=== PATIENT | female | born 1995 | race Caucasian/White ===

== ENCOUNTER 2021-02-03 08:19 | Emergency (ER) | payer OTHER, SELFPAY ==
[2021-02-03 08:35] VITALS: BP 134/85; PULSE 83; RESP 18; TEMP 37.1; O2SAT 99
--- NOTE | 2021-02-03 08:35 | ED.URI ---
HPI - URI/Sore Throat General Chief Complaint: Unspecified Stated Complaint: Wants Covid Test Time Seen by Provider: 02/03/21 08:34 Source: patient Mode of arrival: ambulatory Limitations: no limitations History of Present Illness HPI Narrative: Patient is a 25-year-old female who presents for evaluation of rhinorrhea, congestion, mild productive cough. Patient states that she was exposed to a person who tested positive for Covid, and was exposed to them on January 30. Patient currently denies fever, chills, nausea, vomiting, diarrhea. She does report loss of sense of taste, no loss of sense of smell. She denies any chest pain or pleuritic pain. No shortness of breath. She reports mild dry cough and congestion. Her two children have also been sick with rash, similar symptoms. Patient denies any fever. States she is vaccinated. Related Data Home Medications Medication Instructions Recorded Confirmed No Home Medications 02/03/21 02/03/21 Allergies Allergy/AdvReac Type Severity Reaction Status Date / Time ceftriaxone Allergy Unknown RASH Verified 02/03/21 08:38 Review of Systems Review of Systems: CONSTITUTIONAL: Denies fever, chills, or sweats. EYES: Denies visual changes, redness, or discharge. ENT: Reports rhinorrhea, congestion, denies sore throat or otalgia CARDIOVASCULAR: Denies chest pain, palpitations, or edema. RESPIRATORY: Denies cough or dyspnea. GASTROINTESTINAL: Denies abdominal pain, nausea, vomiting, or diarrhea. GENITOURINARY: Denies dysuria or hematuria. SKIN: Denies rash or itching. MUSCULOSKELETAL: Denies back pain, joint pain, or myalgia. NEUROLOGIC: Denies headache, numbness, or weakness. [facility] Social History Social History (Updated 02/03/21 @ 09:32 by Marie Holland MD) Smoking status: Former smoker Tobacco type: cigarettes Alcohol intake: never Substance use: never Living arrangements: with family Gender identity (if verbalized by the patient): Female Exam Narrative: GENERAL: Awake, alert, conversant HEAD: Normocephalic, atraumatic. EYES: PERRLA and EOMI. ENT: Nares clear, mild congestion, no significant rhinorrhea. Mucous membranes moist. NECK: Supple. CHEST: No respiratory distress, breathing even and non labored HEART: Regular rate, sinus rhythm ABDOMEN:Non distended, non tender EXTREMITIES: Normal range of motion. No edema. SKIN: Warm, dry, no rash. NEURO:No focal deficits. Alert and oriented x3 Course Vital Signs Vital signs: Vital Signs Temperature 37.1 C 02/03/21 08:35 Pulse Rate 83 02/03/21 08:35 Respiratory Rate 18 02/03/21 08:35 Blood Pressure 134/85 02/03/21 08:35 Pulse Oximetry 99 02/03/21 08:35 Temperature 37.1 C 02/03/21 08:35 Pulse Rate 83 02/03/21 08:35 Respiratory Rate 18 02/03/21 08:35 Blood Pressure 134/85 02/03/21 08:35 Pulse Oximetry 99 02/03/21 08:35 MDM - URI/Sore Throat MDM Narrative Medical decision making narrative: Patient presenting for evaluation of congestion, mild cough. Patient is well-appearing at the time of assessment with normal vital signs. She denies any chest pain, shortness of breath, high fever, myalgias, vomiting. Patient states that she would like to be tested for Covid and would like her children tested for Covid. The lodging manager is evaluating her children. Patient is well-appearing, no focal findings on exam. Patient is in no respiratory distress. There is no wheezing or crackles appreciated on exam. Low suspicion for bacterial pneumonia given mild nature of symptoms. This may be a nonspecific viral illness versus Covid illness. We will swab for Covid. Patient was then discharged home with family in stable condition given close return precautions, advised to quarantine until results of Covid swab are available. Differential Diagnosis Differential diagnosis: Likely upper respiratory infection, sinusitis, viral infection and bronchitis Lab Data Labs: Lab Results 12
[2021-02-03 17:58] LABS: SARS-CoV-2 RNA PCR Positive
== END 2021-02-03 09:41 | disposition home or self-care (01) ==
PROVIDERS: Emergency Provider Emergency Medicine
DX: U07.1 COVID-19 (principal); J06.9 Acute upper respiratory infection, unspecified; Z87.891 Personal history of nicotine dependence
CPT/HCPCS: 99283; C9803; U0003; U0005

== ENCOUNTER 2021-11-04 10:25 | Observation (INO) | payer OTHER, SELFPAY ==
[2021-11-04 11:01] VITALS: BP 111/64; PULSE 76
--- NOTE | 2021-11-04 11:37 | OBADM ---
This patient, Keisha Dove, admitted to the OB room Labor/Delivery/Recovery 120 for observation. Patient/family oriented to hospital policies and general routines including ID bracelet, bed and alarms, visiting hours, pain management, procedures, bathroom and other care routines, personal items, smoking policy, room service/diet, and visiting hours. Patient/Family are encouraged to report perceived risks to care and to ask questions if they do not understand what they are told or what they should do.
[2021-11-04 11:56] LABS: Appearance Urine Clear (Clear); Bilirubin Urine Negative (Negative); Color Urine Yellow (Yellow); Glucose Urine UA Negative (Negative); Ketones Urine Negative (Negative); Leukocyte Esterase Ur Negative LEU/UL (Negative); Nitrate Urine Negative (Negative); Protein Urine Negative (Negative); Urobilinogen Urine 0.2 mg/dL (<2.0)
[2021-11-04 12:01] LABS: Mucus Urine Rare /lpf; RBC Urine 0-2 /hpf (0-2); Squamous Epithelial Cell Urine Many /hpf (Few); WBC Urine 0-3 /hpf
[2021-11-04] MEDS: HYDROcodone/acetaminophen (*CRX) 10-325 MG TABLET 1 TAB PO (12:07)
[2021-11-04 12:08] LABS: Add Urine Microscopic? YES; Blood Urine Trace-Intact (Negative)
--- NOTE | 2021-11-05 14:54 | PM.OBTRLD ---
OB - Triage/Final Diagnosis Visit Information Date of evaluation: 11/05/21 Reason for evaluation: threatened labor Comments/Additional reasons for admission: I have assessed the risk for this patient, Keisha Dove, and determined that she would benefit from observation care. Evaluation Laboratory results: Laboratory Tests 11/04/21 10:56 Urine Color Yellow Urine Appearance Clear Urine pH 7.0 Ur Specific [place] 1.020 Urine Protein Negative Urine Glucose (UA) Negative Urine Ketones Negative Ur Blood (Man) Trace-intact Urine Nitrate Negative Urine Bilirubin Negative Urine Urobilinogen 0.2 Leukocyte Esterase Rfl Negative Urine RBC 0-2 Urine WBC 0-3 Ur Squamous Epith Cells Many H Urine Mucus Rare
--- NOTE | 2021-11-09 07:39 | PM.OBTRLD ---
OB - Triage/Final Diagnosis Visit Information Reason for evaluation: threatened labor Comments/Additional reasons for admission: I have assessed the risk for this patient, Keisha Dove, and determined that she would benefit from observation care. Evaluation Laboratory results: Laboratory Tests 11/04/21 10:56 Urine Color Yellow Urine Appearance Clear Urine pH 7.0 Ur Specific [place] 1.020 Urine Protein Negative Urine Glucose (UA) Negative Urine Ketones Negative Ur Blood (Man) Trace-intact Urine Nitrate Negative Urine Bilirubin Negative Urine Urobilinogen 0.2 Leukocyte Esterase Rfl Negative Urine RBC 0-2 Urine WBC 0-3 Ur Squamous Epith Cells Many H Urine Mucus Rare
== END 2021-11-04 12:10 | disposition home or self-care (01) ==
PROVIDERS: Admitting Provider Obstetrics & Gynecology; Visit Provider Obstetrics & Gynecology
DX: O47.03 False labor before 37 completed weeks of gestation, third trimester (principal); Z3A.28 28 weeks gestation of pregnancy
CPT/HCPCS: 81001; A9270; G0378; G0379

== ENCOUNTER 2021-11-11 07:11 | Outpatient (RCR) | payer OTHER, SELFPAY ==
[2021-11-11] MEDS: RHO(D) IMMUNE GLOBULIN 300 MCG/2 ML SYRINGE IM (13:56)
== END 2021-11-11 07:30 | disposition home or self-care (01) ==
LOC: ANHLAB 07:11
PROVIDERS: Visit Provider Obstetrics & Gynecology
DX: Z29.13 Encounter for prophylactic Rho(D) immune globulin (principal); O36.0190 Maternal care for anti-D [Rh] antibodies, unspecified trimester, not applicable or unspecified; Z3A.00 Weeks of gestation of pregnancy not specified
CPT/HCPCS: 36415; 85461; 90384; 96372; J2790

== ENCOUNTER 2022-01-01 16:07 | Observation (INO) | payer OTHER, SELFPAY ==
[2022-01-01] VITALS (8 sets, daily range): BP systolic 100–105; BP diastolic 51–61; PULSE 71–84; O2SAT 99–100; BMI 36.3
--- NOTE | 2022-01-05 07:44 | PM.OBTRLD ---
OB - Triage/Final Diagnosis Visit Information Reason for evaluation: threatened labor Comments/Additional reasons for admission: I have assessed the risk for this patient, Keisha oDve, and determined that she would benefit from observation care.
== END 2022-01-01 17:15 | disposition home or self-care (01) ==
PROVIDERS: Admitting Provider Obstetrics & Gynecology; Visit Provider Obstetrics & Gynecology
DX: O47.1 False labor at or after 37 completed weeks of gestation (principal); Z3A.37 37 weeks gestation of pregnancy
CPT/HCPCS: G0378; G0379

== ENCOUNTER 2022-01-15 11:13 | Outpatient (CLI) | payer OTHER, SELFPAY ==
[2022-01-15 11:41] LABS: Hematocrit 31.9 % (37.0-47.0); Hemoglobin 10.4 g/dL (12.0-15.0); Mean Corpuscular HGB Conc 32.6 g/dl (32-36); Mean Corpuscular Hemoglobin 27.6 pg (26-34); Mean Corpuscular Volume 84.6 fl (80-100); Mean Platelet Volume 11.1 fl (7.4-10.4); Platelet Count Result 184 k/mm3 (150-375); Red Blood Count 3.77 M/mm3 (4.2-5.4); Red Cell Distribution Width 12.6 % (11.5-14.5)
[2022-01-17 07:13] LABS: Rapid Plasma Reagin Non-Reactive (NonReactive)
== END 2022-01-15 11:14 | disposition home or self-care (01) ==
LOC: ANHLAB 11:16
PROVIDERS: Visit Provider Obstetrics & Gynecology
DX: Z01.818 Encounter for other preprocedural examination (principal)
CPT/HCPCS: 36415; 85027; 86592; 86850; 86880; 86900; 86901; 86902

== ENCOUNTER 2022-01-17 09:37 | Inpatient (IN) | payer OTHER, SELFPAY ==
[2022-01-17] VITALS (54 sets, daily range): BP systolic 103–135; BP diastolic 49–100; PULSE 50–187; RESP 12–18; TEMP 36.2–37; O2SAT 84–100; BMI 36.3
--- NOTE | 2022-01-17 07:40 | PM.IMHP ---
H&P: HPI History of Present Illness Date/Time: 01/17/22 07:40 Chief Complaint: Repeat section Narrative: This is a 26 year female admitted for repeat has been complicated PMFSH Family History Family History Other Patient denies significant medical history Social History Social History Smoking status: Former smoker Tobacco type: cigarettes Alcohol intake: never Substance use: current Last use: daily Gender identity (if verbalized by the patient): Female Spiritual care concerns: No Meds Home Medications and Allergies Home Medications Medication Instructions Recorded Confirmed Type No Home Medications 02/03/21 01/01/22 History Allergies Allergy/AdvReac Type Severity Reaction Status Date / Time ceftriaxone Allergy Unknown RASH Verified 02/03/21 08:38 Exam Const: General: cooperative, healthy appearing, comfortable and well groomed Nutritional Appearance: average body habitus Orientation/consciousness: oriented to person, oriented to place and oriented to time HENMT: Head: normal to inspection Resp: Effort & Inspection: normal respiratory effort Cardio: Rate: regular rate Rhythm: regular rhythm Heart sounds: S1 normal heart sound present and S2 normal heart sound present GI: Inspection: normal to inspection (Gravid soft uterus) Assessment and Plan Assessment and plan (1) Term : Code(s): Z34.90 - Encounter for supervision of normal , unspecified, unspecified trimester Status: Acute (2) Previous section: Code(s): Z98.891 - History of uterine scar from previous surgery Status: Acute Plan Repeat low-transverse section
--- NOTE | 2022-01-17 07:43 | WPDHPUPDATE1 ---
History and Physical Update Update Date/Time: 01/17/22 07:43 History and Physical has been reviewed, including an updated exam of the patient. There are NO changes in the patient's condition. Risks, benefits, and alternatives have been discussed and questions answered. Patient agrees to proceed with procedure.
--- NOTE | 2022-01-17 09:37 | LDADM ---
This patient, Keisha Dove, was admitted to OB Post 116 on 01/17/22 at 09:37. Plans for labor, pain management and were discussed with patient. Patient/family oriented to hospital policies and general routines including ID bracelet, bed and alarms, visiting hours, pain management, procedures, bathroom and other care routines, personal items, smoking policy, room service/diet and guest tray routines, infant security routines, and visiting hours. Patient/Family are encouraged to report perceived risks to care and to ask questions if they do not understand what they are told or what they should do. See OBIX for further documentation.
[2022-01-17] MEDS: LACTATED RINGERS 1,000 ML 125 ML IV CONT ×2 (10:47→11:29)
--- NOTE | 2022-01-17 11:11 | P.PNAN_ITS ---
Anes - Initial Pre Proc Eval Procedure: Operation Date: 01/17/22 12:00 Proposed Procedures p Repeat Section with Tubal Ligation with Fallopian Rings - Sourav Roper MD Date/Time: 01/17/22 11:11 Surgeon: Sourav Roper MD Pre Op Diagnosis: Repeat with Vol Sterilization/preadmit Patient Data Age: 26 Gender: F Height: Weight: Allergies Allergy/AdvReac Type Severity Reaction Status Date / Time ceftriaxone Allergy Unknown RASH Verified 01/17/22 10:07 Home Medications Medication Instructions Recorded Confirmed Type No Home Medications 02/03/21 01/01/22 History hydrocodone 5 mg-acetaminophen 325 1 tablet PO Q4H PRN pain #30 tabs 01/17/22 Rx mg tablet hydrocodone 5 mg-acetaminophen 325 1 tablet PO Q4H PRN pain #30 tabs 01/17/22 Rx mg tablet Patient hx anesthesia problems: none Family hx anesthesia problems: none Results Review: All pre-operative results and documents have been reviewed as part of the pre- operative evaluation. [facility] Family History Family History Other Patient denies significant medical history Social History Social History Smoking status: Former smoker Tobacco type: cigarettes Second hand tobacco smoke exposure: No Alcohol intake: never Substance use: current Last use: daily Lack of Transportation: No Lack of Food: Never True Current Housing: I Have Housing Concerned About Future Housing: No Difficulty Paying Gas/Electric Bills: YES Difficulty Paying for Meds: No Currently Unemployed: No Education: High School Diploma/GED Difficulty w/ Childcare or Family Care: No Gender identity (if verbalized by the patient): Female Spiritual care concerns: No Anes - Eval Final PreProcedure Day of Procedure 01/17/22 11:11 Patient weight: overweight Heart: regular rate and rhythm Lungs: clear to auscultation and normal air movement Airway: Mallampati scale class II Neurological: alert and oriented Last oral intake: >/= 8 hours ASA classification: II Emergent: no Anesthetic plan: proceed Anesthesia type and monitoring: regional spinal Results Review: All pre-operative results and documents have been reviewed as part of the pre-operative evaluation. Informed Consent: The patient's anesthetic plan and its attendant risks and benefits were discussed with the patient/family/POA. Questions were solicited and answers provided to the satisfaction of the patient/family/POA.
--- NOTE | 2022-01-17 11:51 | WPDHPUPDATE1 ---
History and Physical Update Update Date/Time: 01/17/22 11:51 History and Physical has been reviewed, including an updated exam of the patient. There are NO changes in the patient's condition. Risks, benefits, and alternatives have been discussed and questions answered. Patient agrees to proceed with procedure. patient will undergo btl
[2022-01-17] MEDS: ceFAZolin 2 GM/D5W 50 ML 2 GM/50 ML BAG IVPB (12:08)
--- NOTE | 2022-01-17 12:58 | P.OP_ITS ---
Procedure Note - Detailed Date of Procedure 01/17/22 Pre-op Diagnosis Repeat with Vol Sterilization/preadmit Post-op Diagnosis Same Procedure Performed Repeat low transverse section and bilateral tubal ligation via Surgeon Sourav Roper MD Anesthesia Spinal Indications this is E 18 year 3 para 3 admitted for repeat section tubal ligation. Findings Female infant 7lb 5oz with Apgars of 8 5minutes respectively. Normal-appeari ng uterus ovaries and tubes Description of Procedure patient was prepped draped in the normal sterile fashion placed in the supine position. Under excellent spinal anesthetic the abdomen was entered through the previous Pfannenstiel incision progressive layers fascia. Fascia incised midline cure number pressure bilaterally. Underlying muscles sharply dissected. Parietal perineum awakened clamped and bike sharp dissection carried superiorly and inferiorly the dome of the bladder. Bladder blade placed bladder blade flap formed bladder blade returned. A low transverse incision made head delivered in the HUMBERTO position. Anterior posterior shoulder delivered spontaneously. Cord complex 2 and cut and passed off the table given Apgars of 8 [id number] cord blood was drawn placenta intact manually uterus delivered in abdomen wrapped in moist towel. After assuring no membranes remained in the uterus uterus was closed initially with a continuous running locking 0 Vicryl from lateral edge to lateral edge. This followed by 2nd imbricating running locking 0 Vicryl from lateral edge to lateral edge. Hemostasis was assured. Tu bal ligation was then undertaken midportion of the right fallopian tube was grasped a good knuckle of tube formed and a free tied with 0 chromic the distal and proximal portions were then free tied with 0 chromic in the portion between cut passed off the table and marked as portion of right fallopian tube. Hemostasis was assured in like fashion left fallopian tube was grasped in midportion a good knuckle of tube formed free tied with 0 chromic. The distal and proximal legs were then free tied with 0 chromic the portion between cut passed off the table labeled as portion of left fallopian tube. Hemostasis was assured. The uterine incision speculum 1 last time no be hemostatic and the uterus returned to the abdomen. The hysterotomy incision inspected 1 last time noted be hemostatic. Laps removed cord blood loss estimated. The fascia closed in continuous running 0 Vicryl from lateral edge to midline bilaterally. Irrigation subcutaneous layer and skin closed with 4 Monocryl and glue blood loss by QBL was 410cc. All sponge, needle, instrument counts were correct. Mom and baby fine time of dictation Estimated Blood Loss 410 Drains No Packing No Pathology Yes ( bilateral portions of tube) Complications No immediate complications Condition Stable Disposition PACU
--- NOTE | 2022-01-17 13:01 | PM.DS ---
DS: Admitting Diagnosis Discharge Date In Admitting Diagnosis term /desires permanent sterilization/ previous section DS: Discharge Diagnosis Discharge Diagnosis (1) Sterilization: Code(s): Z30.2 - Encounter for sterilization Status: Acute (2) Previous section: Code(s): Z98.891 - History of uterine scar from previous surgery Status: Acute (3) Term : Code(s): Z34.90 - Encounter for supervision of normal , unspecified, unspecified trimester Status: Acute DS: Summary Hospital Course Reason for hospitalization: patient was admitted for repeat section bilateral tubal ligation at term Hospital Course: the patient underwent repeat low-transverse section bilateral tubal ligation on 1421. Her hospital course unremarkable. She remained afebrile. She was up, voiding without difficulty, ambulating, eating regular diet, general cut complaints. Time Spent with Patient Time attestation: Total time spent providing and/or coordinating discharge services: Exam Const: General: cooperative, healthy appearing and comfortable Nutritional Appearance: obese Orientation/consciousness: oriented to person, oriented to place and oriented to time HENMT: Head: normal to inspection Resp: Effort & Inspection: normal respiratory effort Cardio: Rate: regular rate Rhythm: regular rhythm Heart sounds: S1 normal heart sound present and S2 normal heart sound present GI: Inspection: normal to inspection, incision ( Wound clean dry and intact) and scar Discharge Plan Discharge Attending physician on discharge: Sourav Husain Discharging Clinician: Sourav Husain Patient Disposition: Home, Self-Care Activity: may shower, no straining and pelvic rest Diet: heart healthy Wound Care Instructions: follow printed instructions Patient Instructions: Antibiotic Form Stand Alone Forms: General Discharge Information Follow-up/Referrals: Sourav Husain MD [Physician] - Discharge Medications: New hydrocodone-acetaminophen 5-325 mg tablet 1 tablet PO Q4H PRN (Reason: pain) Qty: 30 0RF hydrocodone-acetaminophen 5-325 mg tablet 1 tablet PO Q4H PRN (Reason: pain) Qty: 30 0RF No Action No Home Medications Date of admission: 01/17/22 09:37 Primary Care Provider: UNKNOWN,DOCTOR Admitting Provider: Sourav Husain Attending physician on admission: Sourav Husain Condition: Stable
[2022-01-17] MEDS: MORPHINE SULFATE INJ (*CRX) 10 MG/ML AMP 2 MG IV PUSH ×5 (13:23→15:06)
--- NOTE | 2022-01-17 13:53 | PC.NURSE ---
2 bags of 100 ml LR bolused in pre op per protocol. Scanned under order of 125 ml/hr.
--- NOTE | 2022-01-17 14:49 | PC.NURSE ---
Report given to RACHEAL Skinner on unit.
--- NOTE | 2022-01-17 15:22 | OBPPTRN ---
Patient transferred to post room #285 via stretcher. Support person present. Oriented to unit, room, information board, rooming in, admission packet and security measures. Patient verbalizes understanding.
[2022-01-17] MEDS: DEXTROSE 5%/0.45% SOD CHL 1,000 ML 125 ML IV CONT (15:43)
[2022-01-17] MEDS: KETOROLAC 30 MG/ML VIAL (*BKC) IV PUSH ×2 (15:45→20:03)
[2022-01-18] MEDS: HYDROcodone/acetaminophen (*CRX) 10-325 MG TABLET 1 TAB PO ×5 (00:10→19:41)
[2022-01-18 04:10] VITALS: BP 103/58; PULSE 70; RESP 16; TEMP 36.6; O2SAT 98
[2022-01-18] MEDS: ACETAMINOPHEN 325 MG TABLET 650 MG PO (04:15)
[2022-01-18 05:41] LABS: Basophils Percent Auto 0.2 % (0.2-1.2); Eosinophils Absolute Auto 0.1 K/mm3 (0-0.3); Eosinophils Percent Auto 0.7 % (0-4.4); Hematocrit 26.7 % (37.0-47.0); Hemoglobin 8.7 g/dL (12.0-15.0); Immature Granulocyte Absolute 0.04 K/mm3 (0.00-0.031); Immature Granulocyte Percent A 0.4 % (0-0.5); Lymphocytes Absolute Auto 1.62 K/mm3 (0.9-3.2); Lymphocytes Percent Auto 17.2 % (18.3-44.2); Mean Corpuscular HGB Conc 32.6 g/dl (32-36); Mean Corpuscular Hemoglobin 26.9 pg (26-34); Mean Corpuscular Volume 82.7 fl (80-100); Mean Platelet Volume 11.9 fl (7.4-10.4); Monocytes Percent Auto 10.8 % (2.6-8.5); Neutrophils Absolute Auto 6.7 K/mm3 (1.3-6.7); Neutrophils Percent Auto 70.7 % (45.5-73.1); Platelet Count Result 149 k/mm3 (150-375); Red Blood Count 3.23 M/mm3 (4.2-5.4); Red Cell Distribution Width 12.7 % (11.5-14.5); White Blood Count 9.4 K/mm3 (4.5-10.0)
[2022-01-18] MEDS: IBUPROFEN 600 MG TABLET PO ×3 (06:49→19:40)
[2022-01-18] MEDS: HYDROcodone/acetaminophen (*CRX) 5-325 MG TABLET 1 TAB PO (06:50)
--- NOTE | 2022-01-18 07:48 | PM.OBPNVD ---
OB - PN: Subj Subjective Date/time seen: 01/18/22 07:48 Patient comments: no complaints and pain well controlled baby status: doing well and nursing well OB - PN: Obj Data Labs CBC & Chem 7: 01/18/22 04:04 Labs: Laboratory Results - last 24 hr 01/18/22 04:04 WBC 9.4 RBC 3.23 L Hgb 8.7 L Hct 26.7 L MCV 82.7 MCH 26.9 MCHC 32.6 RDW 12.7 Plt Count 149 L MPV 11.9 H Immature Gran % (Auto) 0.4 Neut % (Auto) 70.7 Lymph % (Auto) 17.2 L [place] % (Auto) 10.8 H Eos % (Auto) 0.7 Baso % (Auto) 0.2 Lymph # (Auto) 1.62 [place]ley # (Auto) 1.0 H Eos # (Auto) 0.1 Baso # (Auto) 0.0 Abs Immat Gran (auto) 0.04 H Absolute Neuts (auto) 6.7 Absolute Nucleated RBC 0.0 Nucleated RBC % 0.0 OB - PN A/P Plan day: 1 Plan: routine care Comments: start iron replacement Time Spent With Patient Time: Total time spent is greater than 50% in coordination of care (as documented) at patient's floor/unit and/or counseling patient: Exam Const: General: cooperative, healthy appearing and comfortable Nutritional Appearance: average body habitus Orientation/consciousness: oriented to person, oriented to place and oriented to time HENMT: Head: normal to inspection Resp: Effort & Inspection: normal respiratory effort GI: Inspection: normal to inspection and incision ( clean dry and intact)
[2022-01-18 08:05] VITALS: BP 101/53; PULSE 59; RESP 18; TEMP 37.6; O2SAT 99
[2022-01-18] MEDS: SIMETHICONE 80 MG TAB.CHEW PO (10:15)
[2022-01-18] MEDS: DOCUSATE SODIUM 100 MG CAPSULE PO (10:15)
[2022-01-18] MEDS: MULTIVIT/MIN/PREN/FOL AC/IRON TABLET 1 TAB PO (10:15)
[2022-01-18] MEDS: POLYSACCHARIDE IRON COMPLEX 150 MG CAPSULE PO ×2 (10:15→16:46)
--- NOTE | 2022-01-18 10:40 | PC.NURSE ---
Primary RN reported to RN this morning that mother declined support.
--- NOTE | 2022-01-18 11:10 | WPDANLDNPN2 ---
Anes-Prog Note L&D-Neuraxial Date/Time: 01/18/22 11:10 Neuraxial medications: intrathecal PF morphine Opiod-related complaints: pruritis moderate, treatment effective (moderate, no treatment. ) Patient feedback: Patient satisfied with post-operative pain management.
--- NOTE | 2022-01-18 11:11 | WPDANLDPN2 ---
Anes-Prog Note L&D Date/Time: 01/18/22 11:11 Comfortable throughout: section Neuraxial method: spinal Epidural/Spinal procedure site: clean & non-tender Neuro status: Neuro function grossly intact. Cardiovascular status: normal Respiratory status: normal Airway patency: baseline Mental status: baseline Post-Op hydration status: normal Vital Signs: Last Vital Signs Temp 99.6 F 01/18/22 08:05 Pulse 59 L 01/18/22 08:05 Resp 18 01/18/22 08:05 BP 101/53 L 01/18/22 08:05 Pulse Ox 99 01/18/22 08:05 O2 Del Method Room Air 01/18/22 04:10 Pain score (VAS): 0 I/O: Intake & Output 01/17/22 01/18/22 01/18/22 23:59 07:59 15:59 Intake Total 1400 750 500 Output Total 125 1400 800 Balance 1275 -650 -300 Post-procedural complaints: none Patient feedback: Patient satisfied with anesthetic care.
[2022-01-18 11:43] VITALS: BP 115/54; PULSE 71; RESP 16; TEMP 37.2; O2SAT 100
[2022-01-18] MEDS: ZOLPIDEM TARTRATE (*CRX) 5 MG TABLET PO (19:40)
[2022-01-18] MEDS: TETANUS,DIPHTHERIA,AC PERTUSSIS ADULT (0.5 ML) BOOSTRIX IM (19:42)
[2022-01-18] MEDS: LANOLIN (LANSINOH) 7.5 GM CREAM 1 APPLIC TOPICAL (19:43)
[2022-01-18 20:00] VITALS: BP 101/61; PULSE 63; RESP 18; TEMP 36.9
[2022-01-19] MEDS: HYDROcodone/acetaminophen (*CRX) 10-325 MG TABLET 1 TAB PO ×2 (05:22→08:52)
[2022-01-19] MEDS: IBUPROFEN 600 MG TABLET PO (05:23)
--- NOTE | 2022-01-19 07:40 | PM.OBPNVD ---
OB - PN: Subj Subjective Date/time seen: 01/19/22 07:40 Patient comments: no complaints and pain well controlled baby status: doing well and nursing well OB - PN: Obj Data Labs CBC & Chem 7: 01/18/22 04:04 OB - PN A/P Plan day: 2 Plan: routine care, discharge home and follow up 6 weeks ( 4 weeks) Time Spent With Patient Time: Total time spent is greater than 50% in coordination of care (as documented) at patient's floor/unit and/or counseling patient: Time with patient: less than 15 minutes Exam Const: General: cooperative, healthy appearing and comfortable Nutritional Appearance: average body habitus Orientation/consciousness: oriented to person, oriented to place and oriented to time Resp: Effort & Inspection: normal respiratory effort GI: Inspection: normal to inspection and incision ( wound clean dry and intact)
[2022-01-19 08:10] VITALS: BP 111/74; PULSE 92; RESP 16; TEMP 37.3; O2SAT 95
[2022-01-19] MEDS: DOCUSATE SODIUM 100 MG CAPSULE PO (08:52)
[2022-01-19] MEDS: POLYSACCHARIDE IRON COMPLEX 150 MG CAPSULE PO (08:52)
[2022-01-19] MEDS: MULTIVIT/MIN/PREN/FOL AC/IRON TABLET 1 TAB PO (08:52)
--- NOTE | 2022-01-19 11:26 | PC.NURSE ---
Patient to view the discharge video Mother & Baby Care, The First Two Weeks online. Patient was given the opportunity and encouraged to ask questions. Patient verbalized understanding of information shared and has been given the mother/baby guide for home reference.
[2022-01-20 10:17] VITALS: BP 107/64; PULSE 72; RESP 18; TEMP 36.8; O2SAT 100
== END 2022-01-19 13:00 | disposition home or self-care (01) | DRG 540 ==
LOC: ANHOBPP 09:41 → ANHOB2 15:36
PROVIDERS: Admitting Provider Obstetrics & Gynecology; Visit Provider Obstetrics & Gynecology
PROC: 10D00Z1 Extraction of Products of Conception, Low, Open Approach (ICD-10-PCS; CPT 59514; principal; 2022-01-17 12:00)
DX: O34.219 Maternal care for unspecified type scar from previous cesarean delivery (principal); Z30.2 Encounter for sterilization; Z87.891 Personal history of nicotine dependence; Z37.0 Single live birth; Z3A.39 39 weeks gestation of pregnancy
CPT/HCPCS: 36415; 85025; 88302; 90715; A9270; J0690; J1885; J2270; J2274; J3010; J7120

== ENCOUNTER 2024-08-12 22:52 | Emergency (ER) | payer MEDICAID, SELFPAY ==
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
[2024-08-12 22:53] VITALS: BP 102/81; PULSE 77; RESP 15; TEMP 36.6; O2SAT 100
--- OUTSIDE RECORDS SUMMARY | 2024-08-12 22:53 | XMS_ITS | Referral Summary ---
Author Organization [facility] Address [address] [place] [address] Care Team Providers Care Oracle Applications Developer Name Role Phone No, Physician Primary Care Provider [phone] Allergies Active Allergy Reactions Criticality Noted Date Comments Ceftriaxone Hives Medium 03/25/2021 Medications cyclobenzaprine (FLEXERIL) 10 mg tablet Take 1 tablet (10 mg total) by mouth 3 (three) times a day as needed for muscle spasms 15 tablet 03/25/2021 Active naproxen (NAPROSYN) 500 mg tablet Take 1 tablet (500 mg total) by mouth 2 (two) times a day with meals 30 tablet 03/25/2021 Active Social History Tobacco Use Types Packs/Day Years Used Date Smoking Tobacco: Never Assessed Personal Safety Answer Date Recorded Getting School Help Needed Not on file 04/30 Comments Unknown Sex and Gender Information Value Date Recorded Sex Assigned at Not on file Legal Sex Female 8:16 PM [employer] Gender Identity Not on file Sexual Orientation Not on file Last Filed Vital Signs Vital Sign Reading Time Taken Comments Blood Pressure 125/101 03/25/2021 3:13 PM [employer] Pulse 92 03/25/2021 3:13 PM [employer] Temperature 36.7 C (98 F) 03/25/2021 3:13 PM [employer] Respiratory Rate 16 03/25/2021 3:13 PM [employer] Oxygen Saturation 100% 03/25/2021 3:13 PM [employer] Inhaled Oxygen Concentration - - Weight 86.2 kg (190 lb) 03/25/2021 3:13 PM [employer] Height 160 cm (5' 3) 03/25/2021 3:13 PM [employer] Body Mass Index 33.66 03/25/2021 3:13 PM [employer] Plan of Treatment Not on file Insurance [facility] Care Teams Oracle Applications Developer Relationship Specialty Start Date End Date No, Physician PCP - General 03/25/21
--- OUTSIDE RECORDS SUMMARY | 2024-08-12 22:53 | XMS_ITS | Clinical Summary ---
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 Gender Identity Not on file Sexual Orientation Not on file Last Filed Vital Signs Vital Sign Reading Time Taken Comments Blood Pressure 125/101 03/25/2021 3:13 PM PRESTO LOG OPERATOR Pulse 92 03/25/2021 3:13 PM PRESTO LOG OPERATOR Temperature 36.7 C (98 F) 03/25/2021 3:13 PM PRESTO LOG OPERATOR Respiratory Rate 16 03/25/2021 3:13 PM PRESTO LOG OPERATOR Oxygen Saturation 100% 03/25/2021 3:13 PM PRESTO LOG OPERATOR Inhaled Oxygen Concentration - - Weight 86.2 kg (190 lb) 03/25/2021 3:13 PM PRESTO LOG OPERATOR Height 160 cm (5' 3) 03/25/2021 3:13 PM PRESTO LOG OPERATOR Body Mass Index 33.66 03/25/2021 3:13 PM PRESTO LOG OPERATOR Plan of Treatment Not on file Insurance [facility] Care Teams Scrap Metal Burner Relationship Specialty Start Date End Date No, Physician PCP - General 03/25/21
--- OUTSIDE RECORDS SUMMARY | 2024-08-12 22:53 | XMS_ITS | CONTINUITY OF CARE DOCUMENT ---
Author Name nehemiah cerna Address Unknown Organization [facility] Address [address] [place] [address] Phone [phone] Care Team Providers Care Release Coordinator Name Role Phone Russ CUNNINGHAM, Itzel Unavailable FOZIA CUNNINGHAM, GLORIA Lees Unavailable [phone] INSURANCE PROVIDERS Payer name Policy type / Coverage type [place] red green party ID [id number] PAY [id number]
--- OUTSIDE RECORDS SUMMARY | 2024-08-12 22:53 | XMS_ITS | Encounter Summary ---
Author Organization [facility] Address [address] [place] [address] Care Team Providers Care Behavioral Health Assistant Name Role Phone Yesica Ibarra MD Primary Care Provider [phone] Yesica Ibarra MD Primary Care Provider [phone] Reason for Visit * Reason Onset Date Comments Update 12/28/2009 [employer] did not ruiz ve any records of any labs drawn on 08/17/09 Encounter Details Date Type Department Care Team (Late st Contact Info) Description 12/28/2009 Telephone [facility] Pediatrics - Endocrinology [address] [place] [address] Harsh Duenas MD [address] [place] [id number] Update ([employer] did not have any records of any labs drawn on 08/17/09) Social History Tobacco Use Types Packs/Day Years Used Date Smoking Tobacco: Never Alcohol Use Standard Drinks/Week Comments No 0 (1 standard drink = 0.6 oz pur e alcohol) Comments No Sex and Gender Information Value Date Recorded Sex Assigned at Not on file 

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
[2024-08-12] MEDS: KETOROLAC 15 MG/ML VIAL (*BKC) IM (23:44)
[2024-08-12] MEDS: HYDROcodone/acetaminophen (*CRX) 5-325 MG TABLET 1 TAB PO (23:44)
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
--- OUTSIDE RECORDS SUMMARY | 2024-08-12 23:54 | XMS_ITS | CONTINUITY OF CARE DOCUMENT ---
Author Name nehemiah cerna Address Unknown Organization [facility] Address [address] [place] [address] Phone [phone] Care Team Providers Care Licensed Insurance Agent Name Role Phone Russ CUNNINGHAM, Itzel Unavailable FOZIA CUNNINGHAM, GLORIA Lees Unavailable [phone] INSURANCE PROVIDERS Payer name Policy type / Coverage type Christine red republican ID [id number] PAY [id number]
--- OUTSIDE RECORDS SUMMARY | 2024-08-12 23:54 | XMS_ITS | Encounter Summary ---
Author Organization [facility] Address [address] [place] [address] Care Team Providers Care Booth Manager Name Role Phone Yesica Ibarra MD Primary Care Provider [phone] Yesica Ibarra MD Primary Care Provider [phone] Reason for Visit * Reason Onset Date Comments Update 12/28/2009 [employer] did not ruiz ve any records of any labs drawn on 08/17/09 Encounter Details Date Type Department Care Team (Late st Contact Info) Description 12/28/2009 Telephone [facility] Pediatrics - Endocrinology [address] [place] [address] Harsh Duenas MD [address] [place] [id number] Update ([employer] did not have any records of any labs drawn on 08/17/09) Social History Tobacco Use Types Packs/Day Years Used Date Smoking Tobacco: Never Alcohol Use Standard Drinks/Week Comments No 0 (1 standard drink = 0.6 oz pur e alcohol) Comments No Sex and Gender Information Value Date Recorded Sex Assigned at Not on file 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
--- OUTSIDE RECORDS SUMMARY | 2024-08-12 23:54 | XMS_ITS | Referral Summary ---
Author Organization [facility] Address [address] [place] [address] Care Team Providers Care Senior Web Engineer Name Role Phone No, Physician Primary Care Provider [phone] Allergies Active Allergy Reactions Criticality Noted Date [...] on file Legal Sex Female 8:16 PM CRITICAL CARE PARAMEDIC Gender Identity Not on file Sexual Orientation Not on file Last Filed Vital Signs Vital Sign Reading Time Taken Comments Blood Pressure 125/101 03/25/2021 3:13 PM CRITICAL CARE PARAMEDIC Pulse 92 03/25/2021 3:13 PM CRITICAL CARE PARAMEDIC Temperature 36.7 C (98 F) 03/25/2021 3:13 PM CRITICAL CARE PARAMEDIC Respiratory Rate 16 03/25/2021 3:13 PM CRITICAL CARE PARAMEDIC Oxygen Saturation 100% 03/25/2021 3:13 PM CRITICAL CARE PARAMEDIC Inhaled Oxygen Concentration - - Weight 86.2 kg (190 lb) 03/25/2021 3:13 PM CRITICAL CARE PARAMEDIC Height 160 cm (5' 3) 03/25/2021 3:13 PM CRITICAL CARE PARAMEDIC Body Mass Index 33.66 03/25/2021 3:13 PM CRITICAL CARE PARAMEDIC Plan of Treatment Not on file Insurance [facility] Care Teams Senior Web Engineer Relationship Specialty Start Date End Date No, Physician PCP - General 03/25/21
--- OUTSIDE RECORDS SUMMARY | 2024-08-12 23:54 | XMS_ITS | Clinical Summary ---
Author Organization [facility] Address [address] [place] [address] Care Team Providers Care Duct Maker Name Role Phone Yesica Ibarra MD Primary Care Provider [phone] Source Comments [facility],non-owned Affiliates and Associated Physician Practices is amultiple site organization consisting of ambulatory clinics and hospital sitesin [place], [place], [place] and [place]. This disclosure is being madepursuant to the Care Everywhere program and may not contain all information available regarding this patient. 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
--- OUTSIDE RECORDS SUMMARY | 2024-08-12 23:54 | XMS_ITS | Clinical Summary ---
Author Organization 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 PIER RUNNER Gender Identity Not on file Sexual Orientation Not on file Last Filed Vital Signs Vital Sign Reading Time Taken Comments Blood Pressure 125/101 03/25/2021 3:13 PM PIER RUNNER Pulse 92 03/25/2021 3:13 PM PIER RUNNER Temperature 36.7 C (98 F) 03/25/2021 3:13 PM PIER RUNNER Respiratory Rate 16 03/25/2021 3:13 PM PIER RUNNER Oxygen Saturation 100% 03/25/2021 3:13 PM PIER RUNNER Inhaled Oxygen Concentration - - Weight 86.2 kg (190 lb) 03/25/2021 3:13 PM PIER RUNNER Height 160 cm (5' 3) 03/25/2021 3:13 PM PIER RUNNER Body Mass Index 33.66 03/25/2021 3:13 PM PIER RUNNER Plan of Treatment Not on file Insurance [facility] Care Teams Leveling Machine Operator Relationship Specialty Start Date End Date No, Physician PCP - General 03/25/21
[2024-08-12 23:55] VITALS: PULSE 74; RESP 15; O2SAT 99
== END 2024-08-12 23:56 | disposition home or self-care (01) ==
LOC: ANHED 23:52
PROVIDERS: Emergency Provider Emergency Medicine
DX: S49.92XA Unspecified injury of left shoulder and upper arm, initial encounter (principal); V23.49XA Other motorcycle driver injured in collision with car, pick-up truck or van in traffic accident, initial encounter
CPT/HCPCS: 73030; 96372; 99283; A4565; A9270; J1885